=== PATIENT | female | born 1985 | race Caucasian/White ===

== ENCOUNTER 2016-12-17 09:53 | Emergency (ER) | payer MEDICAID ==
[~2016-12-17] VITALS: Ht 147.3 cm; Wt 90.1 kg
[~2016-12-17 09:53] MED LIST: CLIN-60 PO; IBUP400T PO; ONDA4TAB10 PO; OXYC5CAP4 PO
[2016-12-17] MEDS ORDERED: PROPARACAINE OPHTH 0.5%, 15ML ONE ×2 (10:14→10:58)
[2016-12-17] MEDS ORDERED: FLUORESCEIN OPHTHALMIC 1 MG STRIP ONE ×2 (10:14→10:58)
[2016-12-17 10:16] VITALS: BP 120/83
== END 2016-12-17 12:38 | disposition home or self-care (01) ==
LOC: ED 12:15
DX: H10.32 Unspecified acute conjunctivitis, left eye (principal); H16.8 Other keratitis
CPT/HCPCS: 82962; 99283

== ENCOUNTER 2017-04-12 09:28 | Emergency (ER) | payer SELFPAY ==
[~2017-04-12] VITALS: Ht 149.9 cm; Wt 88.5 kg
[~2017-04-12 09:28] MED LIST changes: -CLIN-60 PO; +CLIN150C14 PO; +IBUP-1221 PO; -IBUP400T PO; +OXYC5CAP2 PO; -OXYC5CAP4 PO
[2017-04-12] MEDS ORDERED: ONDANSETRON 2MG/ML, 2ML ONE (10:10)
[2017-04-12] MEDS ORDERED: SODIUM CHLORIDE 0.9%, 500ML IVBOLUS ONE (10:30)
[2017-04-12] MEDS ORDERED: DICYCLOMINE 10 MG/ML, 2ML IM ONE (10:30)
[2017-04-12] MEDS ORDERED: ONDANSETRON 2MG/ML, 2ML IVPush ONE (10:30)
[2017-04-12 11:09] LABS: HEMATOCRIT 43.3 % (34.6-47.8); HEMOGLOBIN 14.8 g/dL (11.7-16.4); WHITE BLOOD COUNT 9.6 x10^3/uL (3.4-10)
[2017-04-12 11:16] LABS: ASPARTATE AMINO TRANSFERASE 23 U/L (15-37); BLOOD UREA NITROGEN 8 mg/dL (7-18)
[2017-04-12 13:03] VITALS: BP 115/74
== END 2017-04-12 13:09 | disposition home or self-care (01) ==
LOC: ED 10:32
DX: K29.00 Acute gastritis without bleeding (principal); K21.9 Gastro-esophageal reflux disease without esophagitis; F12.10 Cannabis abuse, uncomplicated
CPT/HCPCS: 36415; 80053; 83690; 84703; 85025; 96361; 96372; 96374; 99284; J0500; J2405; J7040